=== PATIENT | male | born 1985 | race Two or more races ===

== ENCOUNTER 2025-06-04 14:09 | Outpatient (AMB) | payer BC, SELFPAY ==
[2025-06-04 14:30] VITALS: BP 151/89; PULSE 88; RESP 16; TEMP 36.8; O2SAT 95; BMI 39.4
--- NOTE | 2025-06-04 14:30 | ACNOTE_ITS ---
Vital Signs 06/04/25 14:30 Height 1.8 m Height Method Stated Weight 128.367 kg Weight Measurement Method Standing Scale BMI 39.4 BP 151/89 H Blood Pressure Source Automatic Cuff Blood Pressure Location Left Upper Arm Position Sitting Respiration 16 Pulse 88 Pulse Source Monitor Temp 98.3 F Temp Source Oral Pulse Oximetry (%) 95 Oxygen Delivery Method Room Air Allergies/Meds Allergies & Medications Allergies No Known Allergies Allergy (Unknown, Uncoded 06/04/25 14:33) Medication Reconciliation amoxicillin 875 mg-potassium clavulanate 125 mg tablet 1 tab PO BID 7 days #14 tabs 06/04/25 [Rx] diphenhydramine HCl 25 mg capsule (Benadryl) 25 mg PO QHS PRN cough #30 caps 06/04/25 [Rx] ibuprofen 400 mg tablet 400 mg PO Q8H PRN fever or pain #30 tabs 06/04/25 [Rx] MA Intake Visit Data Collection New Patient or Established: Established Patient (seen at [facility] within 3 years) Seen by Clinical Staff ONLY (RN/MA): No Reason for Visit:: COLD SYMPTOMS Pain Present Currently: No Pain scale:: 0 Pain Scale Used: [employer] Facilitator Required: No PCP or OBGYN visit in last 3 months: Yes Hx Now: No Do You Feel Safe at Home: Yes Authorities Contacted: N/A Smoking Status Smoking Status: Never smoker Immunization / Flu Flu Vaccine in the Last 12 Months: No Flu Vaccine Exclusion Criteria: No Exclusion Criteria Past Medical History Past Medical History CARDIAC: Negative Cardiac Disorders or Congestive Heart Failure RESPIRATORY: Negative Chronic Obstructive Pulmonary Disease (COPD) or Asthma GENITOURINARY: Negative Renal Disease ENDOCRINE: Negative Diabetes Mellitus Type 1 or Diabetes Mellitus Type 2 HEMATOLOGIC: Negative Sickle Cell Disease Family History FAMILY HISTORY: Negative Family Cardiac Disorders Social History SMOKING STATUS: Smoking status: Never smoker SECOND HAND EXPOSURE: second hand exposure: Yes ALCOHOL: Alcohol Intake: Current ALCOHOL FREQUENCY: Alcohol Intake Frequency: holidays/special occasions only HOUSING: Housing: House LIVES WITH: Lives With: Family Patient Portal Questionaires PHQ-9 PHQ-2 Over the last 2 weeks, how often have you been bothered by any of the following problems? 1. Little interest or pleasure in doing things: not at all 2. Feeling down, depressed, or hopeless: not at all Total score: 0 PHQ-9 3. Trouble falling or staying asleep, or sleeping too much: Not at all 4. Feeling tired or having little energy: Not at all 5. Poor appetite or overeating: Not at all 6. Feeling bad about yourself - or that you are a failure or have let yourself or your family down: Not at all 7. Trouble concentrating on things, such as reading the newspaper or watching television: Not at all 8. Moving or speaking so slowly that other people could have noticed? - Or the opposite - being so fidgety or restless that you have been moving around a lot more than usual: not at all 9. Thoughts that you would be better off or of hurting yourself in some way: Not at all Total score: 0 Source: Developed by Drs. Juventino Guerrero, Jane Burrell, Jefe Espino and colleagues, with an educational kat from [employer]. Depression screen completed yes Social History Living Situation History Marital Status: Lives With: Family Housing: House Housing Other:: Patient resides at home with his and children. Tobacco History Smoking Status: Never smoker Second Hand Smoke Exposure: Yes Alcohol History Alcohol Intake: Current Alcohol Intake Frequency: holidays/special occasions only Domestic Abuse History Do You Feel Safe at Home: Yes Review of Systems Report any current symptoms Only answer those that you have currently: Past Medical History Past Medical History Have you ever been diagnosed with any of the following: Cardiology Problems Congestive Heart Failure: No Respiratory Problems Chronic Obstructive Pulmonary Disease (COPD): No Asthma: No Genital/Urinary Problems Renal Disease: No Endocrine Problems Diabetes Mellitus Type 1: No Diabetes Mellitus Type 2: No Blood Problems Sickle Cell Disease: No History of Present Illness HPI Narrative 06/04/2025: Patient was seen and examined in the clinic. Patient presented with complaint of nasal congestion, cough with mild phlegm, subjective feeling of chills, mild shortness of breath associated with headaches x 2 days ago. 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 He took ibuprofen 800 mg to help with his body aches and fever. He also reported to have small fluctuant boil/folliculitis in his right armpit. He noticed that a week ago. Examination was unremarkable. He denies smoking. Drinks alcohol socially. He did not take flu vaccine. Patient was given 7-day course of Augmentin 875 mg twice daily to help both upper respite tract infection and folliculitis of armpit. Additionally, he was given Benadryl to help with sleep at night and cough. Ibuprofen as needed for pain or fever. Was recommended to follow-up with general surgeon, Dr. Mai for further evaluation next week in case if boil is getting bigger in size. Follow-up as necessary. Review of Systems Review of Systems Systems Reviewed: All systems reviewed, normal except as documented Objective/Exam Narrative Physical exam: GENERAL APPEARANCE: AxOx4, generally well-appearing male in no acute distress. Saturating well on room air. HEENT: NC, AT. MMM. EOMI, clear conjunctiva, oropharynx clear. NECK: Supple without lymphadenopathy. No stiffness or restricted ROM. HEART: Regular rate and regular rhythm, normal S1/S2, no m/r/g LUNGS: CTAB, moving air well. No crackles or wheezes are heard. ABDOMEN: Soft, nontender, nondistended with good bowel sounds heard. BACK: No CVAT, no obvious deformity. EXTREMITIES: Without cyanosis, clubbing or edema. NEUROLOGICAL: Grossly nonfocal. Alert and oriented, moving all 4 extremities. CN not formally tested but appear grossly intact. Observed to ambulate with normal gait. Skin: Warm and dry without any rash. Psych: Appropriate mood and affect Assessment & Plan Diagnosis / Problem List (1) Folliculitis of right axilla: Status: Acute Assessment & Plan: - Patient noted boil/folliculitis on his right armpit a week ago. Endorses chills with mild cough. - Examination revealed fluctuant erythematous positive 1 x1 cm boil in right armpit. Plan: - Antibiotic Augmentin 875 mg twice daily given - Referred to general surgeon, Dr. Mai in case if boil become bigger in size (2) Upper respiratory infection: Status: Acute Qualifiers: URI type: acute pharyngitis Pharyngitis/tonsillitis etiology: unspecified etiology Qualified Code(s): J02.9 - Acute pharyngitis, unspecified Assessment & Plan: - Patient presented with cough, nasal congestion, postnasal drip and chills x 2 days ago. Breath sounds are clear to auscultation. Denied any chest pain. Denied getting flu vaccine in the past. Plan: - Augmentin 875 mg twice daily for 7 days -Ibuprofen 400 mg Q8 hourly as needed for pain or fever -Benadryl 25 mg p.o. nightly as needed to help with cough and sleep -Recommended to hydrate and go to the ER in case of worsening signs symptoms Patient was seen and discussed with attending physician, Dr.Watanakunakorn Dr. Philippe MD, PGY 3 Orders: Referrals General surgery J06.9 - Acute upper respiratory infection, unspecified, L73.9 - Follicular disorder, unspecified Office Procedures [facility] Level of Care Nursing/Assessment Patient Status: Established Patient Nursing Assessment/Reassessment: Medication Reconciliation, Update PMH in EMR and Vital Signs Coordination of Care: Complex Care and Chronic Disease 1-5, Consent,records obtained, informed consent, Education Simp Pt/Fam, Lab and Imaging orders, Results/Orders obtained and Staff clarify orders Established Patient Charge Established Patient Point Assignment: 105 Established Patient Point Charge: Level 3 (80-115)
== END 2025-06-04 15:24 | disposition home or self-care (01) ==
LOC: HODAHC 14:09
PROVIDERS: Supervising Provider Internal Medicine; Visit Provider Student in an Organized Health Care Education/Training Program
DX: L73.9 Follicular disorder, unspecified (principal); J06.9 Acute upper respiratory infection, unspecified
CPT/HCPCS: 99213; G0463